=== PATIENT | male | born 1940 | race Caucasian/White ===

== ENCOUNTER → 2016-09-25 | Outpatient (CLI) | payer OTHER ==
[~2016-09-25] MED LIST: DILT120C68 PO; OMEP40CA PO; TRIM100T20 PO; WARF1TAB6 PO; WARF5TAB7 PO
== END | disposition home or self-care (01) ==
LOC: C.PATHSPEC 17:20
PROVIDERS: ATTEND Surgery
DX: L72.3 Sebaceous cyst (principal); Z51.81 Encounter for therapeutic drug level monitoring; Z79.01 Long term (current) use of anticoagulants; Z86.718 Personal history of other venous thrombosis and embolism; Z86.711 Personal history of pulmonary embolism

== ENCOUNTER → 2016-12-29 | Outpatient (CLI) | payer OTHER ==
[~2016-12-29] MED LIST changes: +TRIM100T PO; -TRIM100T20 PO
[2016-12-29 12:42] LABS: BASO % 0.3 %; BASO ABS # 0.01 K/uL (0-0.2); COMPLETE YES; EOS % 0.9 %; HEMATOCRIT 40.1 % (42-52); LYMPH % 29.4 %; LYMPH ABS # 0.97 K/uL (1.2-3.4); MEAN CELL VOLUME 96.2 fL (80-100); MEAN CORPUSCULAR HEMOGLOBIN 32.6 pg (25-34); MEAN CORPUSCULAR HGB CONC 33.9 g/dl (32-36); MEAN PLATELET VOLUME 11.7 fL (7.4-10.4); MONO % 7.9 %; NEUT % 61.5 %; PLATELET COUNT 149 K/uL (130-400); RED BLOOD COUNT 4.17 M/uL (4.7-6.1)
[2016-12-29 13:34] LABS: ALT/SGPT 28 U/L (12-78); BLOOD UREA NITROGEN 18 mg/dl (7-18); CALCIUM 9.2 mg/dl (8.5-10.1); CARBON DIOXIDE 26 mmol/L (21-32); CHLORIDE 108 mmol/L (98-107); CREATININE 0.94 mg/dl (0.60-1.40); GLUCOSE 90 mg/dl (70-99); POTASSIUM 4.1 mmol/L (3.5-5.1); SODIUM 142 mmol/L (136-145)
[2016-12-29 13:36] LABS: ALB/GLOB RATIO 1.6 (0.9-2); ALKALINE PHOSPHATASE 101 U/L (45-117); AST/SGOT 18 U/L (15-37)
== END | disposition home or self-care (01) ==
LOC: C.LABPVFM 09:38
PROVIDERS: ATTEND Internal Medicine Pulmonary Disease
DX: N40.0 Benign prostatic hyperplasia without lower urinary tract symptoms (principal); D68.59 Other primary thrombophilia; I48.2 Chronic atrial fibrillation; M51.26 Other intervertebral disc displacement, lumbar region; Z51.81 Encounter for therapeutic drug level monitoring; Z79.01 Long term (current) use of anticoagulants; Z86.718 Personal history of other venous thrombosis and embolism; Z86.711 Personal history of pulmonary embolism

== ENCOUNTER → 2017-05-09 | Outpatient (CLI) | payer OTHER ==
[~2017-05-09] MED LIST changes: -TRIM100T PO; -WARF1TAB6 PO
--- NOTE | 2017-05-15 10:14 | CODING QUERY MEDICAL NECESSITY ---
SUPPORTING DIAGNOSIS NEEDED Dr. Ponce, A supporting diagnosis is required for the test/procedure performed on this patient in order for us to be reimbursed by the patient's insurance. Please provide a supporting diagnosis for the following test/procedure listed below next to the test name along with your signature. *If there is no additional diagnosis for this patient that would support the following test/procedure please document that below next to the test/procedure. Test(s)/Procedure(s) that require a supporting diagnosis: * 14701 PSA DIAGNOSIS: DATE OF SERVICE: 05/09/17 Provider Signature: Date: Thank you Amor Hirsch [facility] Information Management Once completed, please kindly fax back to [phone] For questions please call [phone]
== END | disposition home or self-care (01) ==
LOC: C.LABPVFM 07:48
PROVIDERS: ATTEND Urology
DX: R36.1 Hematospermia (principal); N40.1 Benign prostatic hyperplasia with lower urinary tract symptoms

== ENCOUNTER → 2017-06-20 | Outpatient (CLI) | payer OTHER ==
[2017-06-20 12:25] LABS: BASO % 0.3 %; BASO ABS # 0.01 K/uL (0-0.2); COMPLETE YES; EOS % 1.7 %; HEMATOCRIT 39.3 % (42-52); LYMPH % 28.2 %; LYMPH ABS # 0.98 K/uL (1.2-3.4); MEAN CELL VOLUME 100.5 fL (80-100); MEAN CORPUSCULAR HEMOGLOBIN 33.5 pg (25-34); MEAN CORPUSCULAR HGB CONC 33.3 g/dl (32-36); MEAN PLATELET VOLUME 11.3 fL (7.4-10.4); NEUT % 61.8 %; PLATELET COUNT 129 K/uL (130-400); RED BLOOD COUNT 3.91 M/uL (4.7-6.1); WHITE BLOOD COUNT 3.48 K/uL (4.8-10.8)
[2017-06-20 12:38] LABS: BLOOD UREA NITROGEN 16 mg/dl (7-18); BUN/CREATININE RATIO 18.1 (10-20); CALCIUM 9.3 mg/dl (8.5-10.1); CARBON DIOXIDE 25 mmol/L (21-32); CHLORIDE 108 mmol/L (98-107); GLUCOSE 88 mg/dl (70-99); POTASSIUM 3.9 mmol/L (3.5-5.1); SODIUM 141 mmol/L (136-145)
[2017-06-20 12:48] LABS: ALB/GLOB RATIO 1.5 (0.9-2); ALKALINE PHOSPHATASE 107 U/L (45-117); ALT/SGPT 25 U/L (12-78); AST/SGOT 19 U/L (15-37); CHOLESTEROL < 50 mg/dl (0-200); HDL CHOLESTEROL 39 mg/dl; TRIGLYCERIDES 15 mg/dl (0-150); VERY LOW DENSITY LIPOPROT CALC 3 mg/dl
== END | disposition home or self-care (01) ==
LOC: C.LABPVFM 15:18
PROVIDERS: ATTEND Internal Medicine Pulmonary Disease
DX: N40.0 Benign prostatic hyperplasia without lower urinary tract symptoms (principal); D68.59 Other primary thrombophilia; M19.90 Unspecified osteoarthritis, unspecified site; I48.2 Chronic atrial fibrillation

== ENCOUNTER → 2017-10-26 | Outpatient (CLI) | payer OTHER ==
[2017-10-26 13:18] LABS: INFLUENZA B ANTIGEN POS for Influ B (NEG)
== END | disposition home or self-care (01) ==
LOC: C.LAB1850 10:44
PROVIDERS: ATTEND Internal Medicine Pulmonary Disease
DX: J20.9 Acute bronchitis, unspecified (principal); J01.90 Acute sinusitis, unspecified

== ENCOUNTER → 2017-12-17 | Outpatient (CLI) | payer OTHER ==
[2017-12-17 12:39] LABS: BASO % 0.3 %; BASO ABS # 0.01 K/uL (0-0.2); EOS % 2.3 %; EOS ABS # 0.07 K/uL (0-0.5); HEMATOCRIT 39.5 % (42-52); HEMOGLOBIN 12.9 g/dL (14.0-18.0); IG# 0.01 K/uL (0.00-0.02); LYMPH % 27.1 %; LYMPH ABS # 0.83 K/uL (1.2-3.4); MEAN CELL VOLUME 101.3 fL (80-100); MEAN CORPUSCULAR HEMOGLOBIN 33.1 pg (25-34); MEAN CORPUSCULAR HGB CONC 32.7 g/dl (32-36); MEAN PLATELET VOLUME 12.1 fL (7.4-10.4); MONO % 8.2 %; MONO ABS # 0.25 K/uL (0.11-0.59); NEUT % 61.8 %; NEUT ABS # 1.89 K/uL (1.4-6.5); PLATELET COUNT 149 K/uL (130-400); RED CELL DISTRIBUTION WIDTH CV 15.6 % (11.5-14.5); RED CELL DISTRIBUTION WIDTH SD 57.6 fL (36.4-46.3); WHITE BLOOD COUNT 3.06 K/uL (4.8-10.8)
[2017-12-17 13:03] LABS: ALT/SGPT 30 U/L (12-78); AST/SGOT 20 U/L (15-37); BLOOD UREA NITROGEN 14 mg/dl (7-18); CALCIUM 8.9 mg/dl (8.5-10.1); CARBON DIOXIDE 25 mmol/L (21-32); CREATININE 0.87 mg/dl (0.60-1.40); GLUCOSE 87 mg/dl (70-99); SODIUM 143 mmol/L (136-145)
[2017-12-17 13:13] LABS: ALKALINE PHOSPHATASE 134 U/L (45-117); CHOLESTEROL 127 mg/dl (0-200); LDL CHOLESTEROL CALCULATED 74 mg/dl; TOTAL PROTEIN 6.9 gm/dl (6.4-8.2)
== END | disposition home or self-care (01) ==
LOC: C.LABPVFM 08:06
PROVIDERS: ATTEND Internal Medicine Pulmonary Disease
DX: I48.91 Unspecified atrial fibrillation (principal); R06.02 Shortness of breath; R97.20 Elevated prostate specific antigen [PSA]

== ENCOUNTER → 2018-04-30 | Outpatient (CLI) | payer OTHER ==
[~2018-04-30] MED LIST changes: +BENZ1CAP90 PO; -OMEP40CA PO; +OMEP40CA41 PO
== END | disposition home or self-care (01) ==
LOC: C.LABPVFM 09:14
PROVIDERS: ATTEND Physician Assistant Medical
DX: R31.29 Other microscopic hematuria (principal)

== ENCOUNTER 2018-05-10 07:10 | Emergency (ER) | payer OTHER ==
[~2018-05-10] VITALS: Ht 180.3 cm; Wt 100.7 kg
[~2018-05-10 07:10] MED LIST changes: -BENZ1CAP90 PO
[2018-05-10 07:16] VITALS: TEMP 36.3; Ht 180.3 cm; Wt 100.7 kg
--- NOTE | 2018-05-10 07:34 | EMERGENCY ROOM VISIT NOTE ---
ED Visit Note First contact with patient: 07:19 I have seen and examined this patient with Susi Austin and generally agree with the treatment plan as discussed. Current/Historical Medications Scheduled Diltiazem Hcl Ext Rel (Tiazac), 120 MG PO QAM Omeprazole (Prilosec), 40 MG PO DAILY Warfarin Sod (Jantoven), 7 MG PO DAILY Allergies Coded Allergies: No Known Allergies (Verified , ., 03/30/18) Vital Signs Date Time Temp Pulse Resp B/P (MAP) Pulse Ox O2 Delivery O2 Flow Rate FiO2 05/10/18 07:16 36.3 81 17 183/81 96 Room Air Departure Information Referrals Luis Reyes M.D. (PCP) Patient Instructions My [facility]
[2018-05-10 08:03] LABS: BASO % 0.3 %; BASO ABS # 0.01 K/uL (0-0.2); EOS % 0.8 %; EOS ABS # 0.03 K/uL (0-0.5); HEMATOCRIT 39.4 % (42-52); HEMOGLOBIN 13.2 g/dL (14.0-18.0); LYMPH % 14.9 %; LYMPH ABS # 0.58 K/uL (1.2-3.4); MEAN CELL VOLUME 99.7 fL (80-100); MEAN CORPUSCULAR HEMOGLOBIN 33.4 pg (25-34); MEAN CORPUSCULAR HGB CONC 33.5 g/dl (32-36); MEAN PLATELET VOLUME 11.2 fL (7.4-10.4); MONO % 10.6 %; MONO ABS # 0.41 K/uL (0.11-0.59); NEUT % 73.4 %; NEUT ABS # 2.85 K/uL (1.4-6.5); PLATELET COUNT 188 K/uL (130-400); RED CELL DISTRIBUTION WIDTH CV 15.1 % (11.5-14.5); RED CELL DISTRIBUTION WIDTH SD 54.7 fL (36.4-46.3); WHITE BLOOD COUNT 3.88 K/uL (4.8-10.8)
[2018-05-10 08:12] LABS: INR 2.7 (0.9-1.1); PTT PATIENT 34.9 SECONDS (21.0-31.0)
[2018-05-10 08:20] LABS: CALCIUM 9.3 mg/dl (8.5-10.1); CREATININE 0.99 mg/dl (0.60-1.40); POTASSIUM 3.7 mmol/L (3.5-5.1)
--- NOTE | 2018-05-10 08:42 | EMERGENCY ROOM VISIT NOTE ---
History First contact with patient: 07:19 Chief Complaint: URINARY SYMPTOMS Stated Complaint: URINARY PAIN History of Present Illness The patient is a 78 year old male who presents to the Emergency Room with complaints of pain in the bladder area. The patient states that it started 2 days ago but has been getting progressively worse. The patient states that he has difficulty urinating. He only urinates small amounts at a time. He denies any dysuria but does admit to some blood in his urine. The patient admits he has an enlarged prostate. He also states he has a hernia in that area. He is on Coumadin. The patient denies any back pain. The patient states he has an appointment with urology next week but he stated that his symptoms got intolerable which is why he came to the ER. Review of Systems 10 system review was performed and was negative unless stated otherwise history of present illness. Past Medical/Surgical History BPH, hernia, DVT, peptic ulcer disease Social History Smoking Status: Never Smoker Marital Status: Occupation Status: retired Current/Historical Medications Scheduled Diltiazem Hcl Ext Rel (Tiazac), 120 MG PO QAM Omeprazole (Prilosec), 40 MG PO DAILY Warfarin Sod (Jantoven), 7 MG PO DAILY Physical Exam Vital Signs Date Time Temp Pulse Resp B/P (MAP) Pulse Ox O2 Delivery O2 Flow Rate FiO2 05/10/18 07:16 36.3 81 17 183/81 96 Room Air Physical Exam GENERAL: This 78-year-old white male appears uncomfortable secondary to his bladder. MENTAL Status: Alert and oriented 3. MOUTH: Mucosa is moist NECK: Supple, no lymphadenopathy noted. No carotid bruits noted. LUNGS: Clear auscultation without wheezes rales or rhonchi. CARDIAC: Regular rate and rhythm without murmur. Pulses is full and equal throughout. BACK: No CVA tenderness noted. ABDOMEN: Positive bowel sounds all 4 quadrants. Soft, bladder is slightly distended. He is tender to palpation over the bladder. Remainder of abdomen is nontender. EXTREMITIES: No cyanosis or edema noted. Medical Decision & Procedures Laboratory Results 05/10/18 07:55 Red Blood Count 3.95, Mean Corpuscular Volume 99.7, Mean Corpuscular Hemoglobin 33.4, Mean Corpuscular Hemoglobin Concent 33.5, Mean Platelet Volume 11.2, Neutrophils (%) (Auto) 73.4, Lymphocytes (%) (Auto) 14.9, Monocytes (%) (Auto) 10.6, Eosinophils (%) (Auto) 0.8, Basophils (%) (Auto) 0.3, Neutrophils # (Auto ) 2.85, Lymphocytes # (Auto) 0.58, Monocytes # (Auto) 0.41, Eosinophils # (Auto ) 0.03, Basophils # (Auto) 0.01 05/10/18 07:55 Test 05/10/18 07:50 05/10/18 07:55 Urine Color YELLOW Urine Appearance CLEAR (CLEAR) Urine pH 5.0 (4.5-7.5) Urine Specific [place] 1.016 (1.000-1.030) Urine Protein NEG (NEG) Urine Glucose (UA) NEG (NEG) Urine Ketones NEG (NEG) Urine Occult Blood 2+ (NEG) Urine Nitrite NEG (NEG) Urine Bilirubin NEG (NEG) Urine Urobilinogen NEG (NEG) Urine Leukocyte Esterase NEG (NEG) Urine WBC (Auto) 1-5 /hpf (0-5) Urine RBC (Auto) 5-10 /hpf (0-4) Urine Hyaline Casts (Auto) 0 /lpf (0-5) Urine Epithelial Cells (Auto) 10-20 /lpf (0-5) Urine Bacteria (Auto) NEG (NEG) White Blood Count 3.88 K/uL (4.8-10.8) Red Blood Count 3.95 M/uL (4.7-6.1) Hemoglobin 13.2 g/dL (14.0-18.0) Hematocrit 39.4 % (42-52) Mean Corpuscular Volume 99.7 fL (80-100) Mean Corpuscular Hemoglobin 33.4 pg (25-34) Mean Corpuscular Hemoglobin Concent 33.5 g/dl (32-36) Platelet Count 188 K/uL (130-400) Mean Platelet Volume 11.2 fL (7.4-10.4) Neutrophils (%) (Auto) 73.4 % Lymphocytes (%) (Auto) 14.9 % Monocytes (%) (Auto) 10.6 % Eosinophils (%) (Auto) 0.8 % Basophils (%) (Auto) 0.3 % Neutrophils # (Auto) 2.85 K/uL (1.4-6.5) Lymphocytes # (Auto) 0.58 K/uL (1.2-3.4) Monocytes # (Auto) 0.41 K/uL (0.11-0.59) Eosinophils # (Auto) 0.03 K/uL (0-0.5) Basophils # (Auto) 0.01 K/uL (0-0.2) RDW Standard Deviation 54.7 fL (36.4-46.3) RDW Coefficient of Variation 15.1 % (11.5-14.5) Immature Granulocyte % (Auto) 0.0 % Immature Granulocyte # (Auto) 0.00 K/uL (0.00-0.02) Prothrombin Time 27.5 SECONDS (9.0-12.0) Prothromb Time International Ratio 2.7 (0.9-1.1) Activated Partial Thromboplast Time 34.9 SECONDS (21.0-31.0) Partial Thromboplastin Ratio 1.3 Anion Gap 8.0 mmol/L (3-11) Est Creatinine Clear Calc Drug Dose 73.1 ml/min Estimated GFR () 83.6 Estimated GFR (Non- 72.1 BUN/Creatinine Ratio 17.0 (10-20) Calcium Level 9.3 mg/dl (8.5-10.1) ED Course The patient was evaluated. Patient's EMR medication list were reviewed. IV access was obtained. CBC differential, renal profile, coags were ordered. Bladder scan was ordered. Urinalysis was ordered. The patient has 340 mL's in his bladder. A urinary catheter was placed in over 800 cc was drained from the bladder. The patient was feeling better. Labs are reviewed and were unremarkable. Urinalysis revealed positive blood but no bacteria. Cultures pending. INR was 2.7. Dr. Chandra independently evaluated the patient and agree with treatment plan. The patient was discharged to home with catheter in place. He will follow with Dr. Ponce next Sunday. Medical Decision Differential diagnosis include urinary retention, bladder cancer, UTI, kidney stone [place] Drug Monitoring Program Search Results: patient reviewed within database Medication Reconcilliation Current Medication List: was personally reviewed by me Blood Pressure Screening Patient's blood pressure: Elevated blood pressure Blood pressure disposition: Elevated BP felt to be situational Impression Primary Impression: Urinary retention Departure Information Dispostion Home / Self-Care Condition GOOD Referrals Luis Reyes M.D. (PCP) Forms HOME CARE DOCUMENTATION FORM, IMPORTANT VISIT INFORMATION Patient Instructions ED Retention Urinary Male, My [facility] Additional Instructions Keep catheter in place until evaluated by Dr. Ponce next Sunday. Change bag as needed. We will call you if any bacteria grows out in your urine. If symptoms worsen in the interim, return to ER.
[2018-05-10 09:17] VITALS: BP 171/87; PULSE 72; O2SAT 96
== END 2018-05-10 09:20 | disposition home or self-care (01) ==
LOC: C.EDB 07:12
DX: N40.1 Benign prostatic hyperplasia with lower urinary tract symptoms (principal); R33.8 Other retention of urine; Z79.01 Long term (current) use of anticoagulants; Z86.718 Personal history of other venous thrombosis and embolism; Z79.899 Other long term (current) drug therapy

== ENCOUNTER 2018-05-10 22:21 | Emergency (ER) | payer OTHER ==
[~2018-05-10] VITALS: Ht 180.3 cm; Wt 98.9 kg
[2018-05-10 22:27] VITALS: Ht 180.3 cm; Wt 98.9 kg
--- NOTE | 2018-05-11 00:37 | EMERGENCY ROOM VISIT NOTE ---
History Report prepared by Paulette: Rhina Maria Under the Supervision of: Dr. Hardy Pan D.O. First contact with patient: 23:18 Chief Complaint: CATHETER REPLACEMENT Stated Complaint: BLEEDING, CATHETER PUT IN THIS MORNING History of Present Illness The patient is a 78 year old male who presents to the Emergency Room with complaints of an episode of catheter replacement starting today. Per spouse, the patient was in the ED earlier today because he had difficulty urinating this morning and was subsequently catheterized. The patient states that he filled his catheter with bloody urine until fluid stopped coming out. The patient reports that he has experienced severe abdominal pain since this morning. Source of History: patient, spouse/significant other Onset: today Position: pelvis Symptom Intensity: severe Quality: other (pain, bleeding) Associated Symptoms: + abdominal pain, + urinary symptoms (bloody urine, urinary retention) Review of Systems See HPI for pertinent positives & negatives. A total of 10 systems reviewed and were otherwise negative. Past Medical & Surgical Medical Problems: (1) Clot (2) Herniated disc (3) Stomach ulcer Family History FHx: diabetes mellitus FHx: gallbladder disease FHx: heart disease FHx: hypertension Social History Smoking Status: Never Smoker Marital Status: Occupation Status: retired Current/Historical Medications Scheduled Diltiazem Hcl Ext Rel (Tiazac), 120 MG PO QAM Omeprazole (Prilosec), 40 MG PO DAILY Warfarin Sod (Jantoven), 7 MG PO DAILY Allergies Coded Allergies: No Known Allergies (Verified , ., 05/10/18) Physical Exam Vital Signs Date Time Temp Pulse Resp B/P (MAP) Pulse Ox O2 Delivery O2 Flow Rate FiO2 05/11/18 00:53 36.7 80 18 145/80 97 Room Air 05/10/18 22:27 36.7 81 18 162/88 94 Room Air Physical Exam CONSTITUTIONAL/VITAL SIGNS: Reviewed / noted above. GENERAL: Non-toxic in appearance. INTEGUMENTARY: Warm, dry, and [place]. HEAD: Normocephalic. EYES: without scleral icterus or trauma. ENT/OROPHARYNX: clear and moist. LYMPHADENOPATHY/NECK: Is supple without lymphadenopathy or meningismus. RESPIRATORY: Lungs clear and equal. CARDIOVASCULAR: Regular rate and rhythm. GI/ABDOMEN: Soft. No organomegaly or pulsatile mass. No rebound or guarding. Normal bowel sounds. Tenderness to suprapubic area. EXTREMITIES: Warm and well perfused. BACK: No CVA tenderness. NEUROLOGICAL: Intact without focal deficits. PSYCHIATRIC: normal affect. MUSCULOSKELETAL: Normally developed with good muscle tone. Medical Decision & Procedures Laboratory Results Test 05/10/18 23:32 Urine Color RED Urine Appearance TURBID (CLEAR) Urine pH 5.0 (4.5-7.5) Urine Specific [place] 1.011 (1.000-1.030) Urine Protein 2+ (NEG) Urine Glucose (UA) NEG (NEG) Urine Ketones NEG (NEG) Urine Occult Blood 3+ (NEG) Urine Nitrite NEG (NEG) Urine Bilirubin NEG (NEG) Urine Urobilinogen NEG (NEG) Urine Leukocyte Esterase TRACE (NEG) Urine WBC (Auto) 5-10 /hpf (0-5) Urine RBC (Auto) >30 /hpf (0-4) Urine Hyaline Casts (Auto) 5-10 /lpf (0-5) Urine Epithelial Cells (Auto) 20-30 /lpf (0-5) Urine Bacteria (Auto) NEG (NEG) Laboratory results as stated above per my review. ED Course 2329: Previous medical records were reviewed. The patient was evaluated in room B9. A complete history and physical examination was performed. 0030: On reevaluation, the patient is resting. I discussed the results and findings with the patient. He verbalized agreement of the treatment plan. The patient was discharged home. Medical Decision Differential considered: pancreatitis, hepatitis, or acute cholecystitis, AAA, UTI, pyelonephritis, kidney stones, appendicitis, diverticulitis, shingles, bowel obstruction mesenteric ischemia, intussusception,hernia, testicular torsion, ovarian torsion, ruptured ovarian cyst,ectopic , . This is a 78-year-old male who presents to the ED with a chief complaint of bladder distention/discomfort and Edmonds catheter malfunction. The patient had a catheter placed this morning in the emergency department for urinary retention. He states that the catheter was not draining well tonight and he had increased discomfort in the suprapubic area. A bladder scan reveals over 300 cc of urine in the bladder. A new catheter was placed in the bladder drained and the symptoms resolved. The urine reveals some gross blood. A few clots were seen on drainage. There is no obvious infection. The patient was told the results of the test. He is felt to be stable for discharge. Medication Reconcilliation Current Medication List: was personally reviewed by me Blood Pressure Screening Patient's blood pressure: Elevated blood pressure Blood pressure disposition: Referred to PCP Impression Primary Impression: Complication of catheter Additional Impression: Hematuria Scribe Attestation The scribe's documentation has been prepared under my direction and personally reviewed by me in its entirety. I confirm that the note above accurately reflects all work, treatment, procedures, and medical decision making performed by me. Departure Information Dispostion Home / Self-Care Referrals Luis Reyes M.D. (PCP) Forms HOME CARE DOCUMENTATION FORM, IMPORTANT VISIT INFORMATION Patient Instructions My [facility] Additional Instructions Follow-up with your doctor for further care and evaluation in 1-2 days. Return to the emergency department for worsening or new symptoms or any concerns. You have been examined and treated today on an emergency basis only. This is not a substitute for, or an effort to provide, complete comprehensive medical care. It is impossible to recognize and treat all injuries or illnesses in a single emergency department visit. It is therefore important that you follow up closely with your doctor. Call as soon as possible for an appointment. Follow-up instructions previously provided. Problem Qualifiers
[2018-05-11 00:53] VITALS: BP 145/80; PULSE 80; TEMP 36.7; O2SAT 97
== END 2018-05-11 00:54 | disposition home or self-care (01) ==
LOC: C.EDB 22:22
DX: T83.018A Breakdown (mechanical) of other urinary catheter, initial encounter (principal); Y73.8 Miscellaneous gastroenterology and urology devices associated with adverse incidents, not elsewhere classified; R31.9 Hematuria, unspecified; R03.0 Elevated blood-pressure reading, without diagnosis of hypertension; Z79.01 Long term (current) use of anticoagulants; Z79.899 Other long term (current) drug therapy

== ENCOUNTER → 2018-05-15 | Outpatient (CLI) | payer OTHER ==
[2018-05-15 18:34] LABS: BLOOD UREA NITROGEN 18 mg/dl (7-18); CREATININE 0.95 mg/dl (0.60-1.40)
== END | disposition home or self-care (01) ==
LOC: C.LAB 16:43
PROVIDERS: ATTEND Urology
DX: R31.0 Gross hematuria (principal); R33.9 Retention of urine, unspecified

== ENCOUNTER → 2018-05-20 | Outpatient (CLI) | payer OTHER ==
[~2018-05-20] MED LIST changes: +DUTA0.5C PO; +HYDR-5688 PO; +OPTIRAY 320 IV PRN; +TAMS0.4C38 PO
--- NOTE | 2018-05-20 09:08 | DIAGNOSTIC IMAGING REPORT ---
CT ABD/PELVIS COMBO CLINICAL HISTORY: Gross hematuria COMPARISON STUDY: None. TECHNIQUE: Unenhanced images were obtained through the abdomen and pelvis. The patient was injected with 50 cc of Optiray 320. After 5 minute delay, the patient was rescanned in a dynamic helical fashion during intravenous administration of additional 70 cc Optiray 320. A dose lowering technique was utilized adhering to the principles of ALARA. CT DOSE: 3325.33 mGycm FINDINGS: Lower chest: The heart is normal in size and configuration, without pericardial effusion. The lung bases and pleural spaces are clear. Liver: The liver has a cirrhotic morphology. No focal masses are visualized. Gallbladder: Unremarkable. Spleen: Normal in size and attenuation. Pancreas: Unremarkable. Adrenal glands: Unremarkable. Kidneys: No renal, ureteral, or bladder calculi are visualized. There is bilateral hydronephrosis and bilateral hydroureter. There is a 6.5 cm solid left renal mass suspicious for a renal cell carcinoma. Bowel: There are no transition zones indicate bowel obstruction. There is a fat-containing right inguinal hernia. There is a large left internal hernia containing 36 cm of descending/sigmoid colon. Peritoneum: There is no free air. There is trace perihepatic fluid. Vasculature: The abdominal aorta is normal in course and caliber. Adenopathy: There is bulky iliac lymphadenopathy. An index left pelvic sidewall lymph node measures 44 x 32 mm. An index right pelvic sidewall lymph node measures 40 x 30 mm. Pelvic viscera: There is indwelling Edmonds catheter. There is a thick walled bladder with mild infiltration the perivesical fat. The prostate is enlarged measuring 71 mm. There is soft tissue prominence of seminal vesicles. There are suspicious subcentimeter nodules/lymph nodes within the perivesical fat. Skeletal structures: There is a 7 mm densely sclerotic lesion within the right iliac bone. There is a 4 mm sclerotic lesion within the sacrum. There is a 4 mm sclerotic lesion within the left femoral head. IMPRESSION: 1. 6.5 cm left renal mass suspicious for renal cell carcinoma 2. Bilateral hydronephrosis and hydroureter 3. Bulky pelvic lymphadenopathy 4. Marked prostamegaly (71 mm), and soft tissue prominence and seminal vesicles 5. Indwelling Edmonds catheter. Pronounced bladder wall thickening. Subcentimeter nodules/lymph nodes within the perivesical fat. 6. Large left inguinal hernia containing 36 cm of descending/sigmoid colon. 7. No evidence of bowel obstruction. Electronically signed by: Delonte Rodriguez M.D. 05/20/2018 9:06 AM Dictated Date/Time: 05/20/2018 8:52 AM
== END | disposition home or self-care (01) ==
LOC: C.CTS 07:58
PROVIDERS: ATTEND Urology
DX: R31.0 Gross hematuria (principal); R33.9 Retention of urine, unspecified; N28.89 Other specified disorders of kidney and ureter; N13.30 Unspecified hydronephrosis; N13.4 Hydroureter; R59.0 Localized enlarged lymph nodes; N40.0 Benign prostatic hyperplasia without lower urinary tract symptoms; N32.9 Bladder disorder, unspecified; Z96.0 Presence of urogenital implants; K40.90 Unilateral inguinal hernia, without obstruction or gangrene, not specified as recurrent